=== PATIENT | male | born 1975 ===

== ENCOUNTER 2020-06-30 08:20 | Outpatient (CLI) | payer BC ==
--- NOTE | 2020-06-30 09:19 | RAD ---
RADIOGRAPH LUMBAR SPINE 3 VIEWS: DATE: 06/30/2020 HISTORY: 44-year-old male with low back pain TECHNIQUE: 3 lateral views in flexion, extension, and neutral. FINDINGS: Vertebral body heights are maintained. Alignment is normal. There is no instability between flexion a nd extension. IMPRESSION: No instability and no spondylolisthesis.
== END 2020-06-30 08:21 | disposition home or self-care (01) ==
LOC: SCSRAD 08:20
PROVIDERS: ATTEND Neurological Surgery
DX: M54.16 Radiculopathy, lumbar region (principal)
CPT/HCPCS: 72100